=== PATIENT | female | born 1940 | race Caucasian/White ===

== ENCOUNTER 2016-07-28 04:33 | Emergency (ER) | payer OTHER, BC ==
[2016-07-28] MEDS ORDERED: NORMAL SALINE 10 ML SYRINGE FLUSH IVP PRN (04:55)
[2016-07-28 04:58] VITALS: RESP 20; TEMP 97.6
[2016-07-28 05:25] LABS: BASOPHILS # (AUTO) 0.08 10*3/UL; BASOPHILS % (AUTO) 0.7 % (0-1); HEMATOCRIT 41.7 % (37.0-47.0); HEMOGLOBIN 13.7 g/dL (12.0-16.0); IMM GRAN % (AUTO) 0.3 % (0-5); IMM GRAN# (AUTO) 0.03 10*3/UL; LYMPHOCYTES # (AUTO) 0.81 10*3/uL; MEAN CORPUSCULAR HEMOGLOBIN 28.3 PG (27-31); MEAN CORPUSCULAR HGB CONC 32.9 g/dL (33-37); MONOCYTES # (AUTO) 0.68 10*3/UL (0.3-0.8); MONOCYTES % (AUTO) 5.9 % (5-15); NEUTROPHILS # (AUTO) 9.54 10*3/UL; NEUTROPHILS % (AUTO) 83.1 % (50-80); RDW COEFFICIENT OF VARIATION 14.3 % (11.5-14.5); RED BLOOD COUNT 4.84 10^6/uL (4.20-5.40); WHITE BLOOD COUNT 11.49 10^3/uL (4.8-10.8)
[2016-07-28 05:27] LABS: PLATELET MORPHOLOGY COMMENT NORMAL MORPHOLOGY (NORM)
[2016-07-28 05:37] LABS: BILIRUBIN,TOTAL 0.9 mg/dL (0.3-1.2); BUN/CREATININE RATIO 13.33 (6-20); C-REACTIVE PROTEIN 1.4 mg/dL (0.0-0.9); CALCIUM 9.1 mg/dL (8.7-10.7); CREATININE 0.9 mg/dL (0.50-1.20); LACTATE 1.5 MMOL/L (0.70-2.10); POTASSIUM 4.2 meq/L (3.8-5.2)
[2016-07-28 05:43] LABS: BILIRUBIN,URINE NEGATIVE (NEG); CLARITY,URINE CLEAR (CLEAR); GLUCOSE, URINE (UA) NEGATIVE (NEG); LEUKOCYTE ESTERASE ,URINE TRACE (NEG); NITRATE,URINE NEGATIVE (NEG); OCCULT BLOOD,URINE NEGATIVE (NEG); PH,URINE 5.5 (5.0-8.5); PROTEIN,URINE NEGATIVE (NEG); UROBILINOGEN,URINE 0.2 EU/dL (0.2)
[2016-07-28 05:44] LABS: URINE SAMPLE TYPE CLEAN CATCH URINE
[2016-07-28 05:45] LABS: SQUAMOUS EPITHELIAL CELL,UR FEW
[2016-07-28] MEDS ORDERED: CLINDAMYCIN 150 MG CAPSULE PO ONE (06:14)
--- NOTE | 2016-07-28 06:34 | PDOC ---
General Adult HPI - General Chief Complaint: General Medical Stated Complaint: Fever/Body Aches Date Seen by Provider: 07/28/16 Time Seen by Provider: 04:40 Source: POSITIVE: Patient, Spouse Exam Limitations: POSITIVE: No limitations Nurse's Notes Reviewed & Considered: Yes - History of Present Illness Initial Comment: The patient is a 76-year-old female who presents to the emergency department with fever. She states that she woke up early this morning and felt like she was running a fever. Her temperature at home was 101. She also had some diffuse muscle aches especially across her shoulders. She took some Advil at home and then subsequently decided to come here to the emergency room. She denies any associated sore throat, cough or congestion. She has not had any complaints of abdominal pain or urinary symptoms. She did have a surgery on her right leg done by a grab operator in [place] for neuropathy about 3 weeks ago. She denies any drainage from the wounds. She was due to have her mir removed today and was supposed to have a similar surgery on her left leg. Have you received a tetanus shot in the past 10 years?: Yes - Patient Home Medications Home Medications: Home Medications Levothyroxine Sodium [Synthroid] 1 tab PO DAILY #90 tab 11/04/15 Metoprolol Succinate [Toprol Xl] 1 tab PO DAILY #90 tab 11/04/15 Citalopram Hydrobromide [Citalopram Hbr] 20 mg PO DAILY #90 tab 03/03/16 Alendronate Sodium [Fosamax] 70 mg PO WEEKLY #12 tab 04/20/16 Clindamycin HCl [Cleocin HCl] 300 mg PO TID #21 capsule 07/28/16 - Patient Allergies Allergies/Adverse Reactions: Allergies Allergy/AdvReac Type Severity Reaction Status Date / Time tolterodine tartrate AdvReac Intermediate diarrhea Verified 07/28/16 04:39 [From Detrol] Past Medical History - heen HEENT History: Denies History Cardiovascular History: Hypertension Respiratory History: Denies History Gastrointestinal History: Denies History Genitourinary History: Denies History Endocrine History: Hypothyroidism Musculoskeletal History: Carpal Tunnel, Other (please comment) Prosthesis or Implant: No Additional Musculoskeletal History: neuropathy bilateral legs Neurological History: Denies History Blood Disorders: Denies History Psychiatric History: Depression Female Reproductive History: Denies History Obstetrical History: Denies History Cancer History: Denies History In Past Year Been Physically Harmed or Verbally Threatened: No History of MDRO: No Tobacco Use: Never Smoker Alcohol Use: None Substance Use Type: None Previous Surgical History: Yes Type / Date of Surgery: lap band placement, carpal tunnel right hand, "neuropathy" surgery right leg, appendectomy, tubal ligation, tonsilectomy Anesthesia Reactions: No Significant Family History: No pertinent family hx Past Medical History Reviewed: Reviewed - No Changes ROS - Limitations ROS Limitations: No Limitations Constitution: REPORTS: Chills, Fever. DENIES: Weakness Cardiovascular: REPORTS: Denies Cardiac Symptoms. DENIES: Chest Pain Respiratory: REPORTS: Denies Resp Symptoms. DENIES: Cough Non Productive, Cough Productive, Shortness Of Breath Neurological: REPORTS: Denies Neuro Symptoms. DENIES: Headache Gastrointestinal: REPORTS: Denies GI Symptoms. DENIES: Abdominal Pain Musculoskeletal: REPORTS: Muscle Aches Genitourinary: DENIES: Dysuria, Flank Pain, Difficulty Urinating Eyes: REPORTS: Denies Symptoms ENT: REPORTS: Denies Symptoms Skin: DENIES: Rash General Adult Exam - General Appearance General Appearance: POSITIVE: Alert, Cooperative, No Acute Distress - HEENT HEENT: POSITIVE: Head Inspection Nml, Eyes Inspection Nml, Ears Inspection Nml, Pharynx Inspect. Nml - Neck Neck: POSITIVE: Normal Inspection. NEGATIVE: Lymphadenopathy - Respiratory Respiratory: POSITIVE: No Respiratory Distress, Breath Sounds Normal - Cardiovascular Cardiovascular: POSITIVE: Regular Rate & Rhythm, No Murmur Peripheral Pulses: Dorsalis-pedis (R): 2+, Dorsalis-pedis (L): 2+ - Abdomen Abdomen: Soft: (All Quadrants), Denies Tenderness: (All Quadrants), No Palpabale Mass: (All Quadrants), No Distention: (All Quadrants) - Back Back: POSITIVE: Normal Inspection - Skin Skin: POSITIVE: Normal Color, No Rash - Extremities Additional Extremities Details: Examination of the right leg reveals 2 incisions one just below the knee and one just above the ankle on her right leg. Mir are still in place. There is some surrounding erythema and induration, no obvious abscess or drainage from these wounds - Neurological / Psychological Neurological: POSITIVE: Other (No focal neurologic deficits) General Adult Progress - Results Reviewed by me Lab Results Reviewed: Yes Lab Results:: Laboratory Results 07/28/16 07/28/16 Range/Units 05:07 05:35 WBC 11.49 H (4.8-10.8) 10^3/uL RBC 4.84 (4.20-5.40) 10^6/uL Hgb 13.7 (12.0-16.0) g/dL Hct 41.7 (37.0-47.0) % MCV 86.2 (81-99) FL MCH 28.3 (27-31) PG MCHC 32.9 L (33-37) g/dL RDW Std Deviation 44.2 (39-50) fL RDW Coeff of Alejandra 14.3 (11.5-14.5) % Plt Count 312 (140-350) 10*3/uL MPV 10.0 (7.4-12.2) FL Immature Gran % (Auto) 0.3 (0-5) % Neut % (Auto) 83.1 H (50-80) % Lymph % (Auto) 7.0 L (10-50) % Cherry % (Auto) 5.9 (5-15) % Eos % (Auto) 3.0 (0-8) % Baso % (Auto) 0.7 (0-1) % Immature Gran # (Auto) 0.03 10*3/UL Neut # (Auto) 9.54 10*3/UL Lymph # (Auto) 0.81 10*3/uL Cherry # (Auto) 0.68 (0.3-0.8) 10*3/UL Eos # (Auto) 0.35 10*3/UL Baso # (Auto) 0.08 10*3/UL WBC Morphology Comment Normal morphology (NORM) Plt Morphology Comment Normal morphology (NORM) RBC Morph Comment Normal morphology (NORM) Sodium 135 (135-145) meq/L Potassium 4.2 (3.8-5.2) meq/L Chloride 102 (98-112) meq/L Carbon Dioxide 21 L (23-33) meq/L Anion Gap 12 (5-20) BUN 12 (7-22) mg/dL Creatinine 0.9 (0.50-1.20) mg/dL Estimated GFR (>60 ml/min/1.73m(2)) BUN/Creatinine Ratio 13.33 (6-20) Glucose 111 H (78-110) mg/dL Calculated Osmolality 280.0 (267-292) mOsm/kg Lactic Acid 1.5 (0.70-2.10) MMOL/L Calcium 9.1 (8.7-10.7) mg/dL Total Bilirubin 0.9 (0.3-1.2) mg/dL AST 18 (8-39) IU/L ALT 25 (9-52) IU/L Alkaline Phosphatase 100 (38-126) IU/L C-Reactive Protein 1.4 H (0.0-0.9) mg/dL Total Protein 7.0 (6.1-8.0) g/dL Albumin 4.0 (3.5-4.8) g/dL Globulin 3.0 (2.50-4.10) g/dL Albumin/Globulin Ratio 1.30 (1.3-2.0) mg/g Ur Collection Type Clean catch urine Urine Color Yellow Urine Clarity Clear (CLEAR) Urine pH 5.5 (5.0-8.5) Ur Specific Armstrong 1.011 (1.005-1.030) Urine Protein Negative (NEG) mg/dl Urine Glucose (UA) Negative (NEG) mg/dL Urine Ketones Negative (NEG) Urine Occult Blood Negative (NEG) Urine Nitrate Negative (NEG) Urine Bilirubin Negative (NEG) Urine Urobilinogen 0.2 (0.2) EU/dL Ur Leukocyte Esterase Trace (NEG) Urine RBC None (NONE) /hpf Urine WBC None (NONE) Ur Squamous Epith Cells Few (NONE) Ur Renal Epithelial Cell None (NONE) Urine Crystals None Urine Bacteria None (NONE) Urine Casts None (NONE) Urine Mucus None (NONE) Urine Trichomonas None (NONE) Urine Yeast None (NONE) Ur Culture Indicated? Culture not set - Patient's Progress MDM / ED Course: The patient was afebrile here in the emergency room and other vital signs were stable. Her blood work does reveal a mildly elevated white blood cell count and mildly elevated CRP. Urinalysis is normal. Her influenza screen was negative. There is no obvious clear source of fever. She does have some mild induration and erythema around both of the wounds on her right leg. This is thought to most likely be related to the staple still being in place however it' s possible that she may have some early wound infection. Because of this she was started on clindamycin 300 mg 3 times a day for 7 days. She is advised to continue Tylenol and ibuprofen as needed for fever. Blood cultures are pending although the patient does not appear to be septic. She is advised follow-up with her primary care clinic and [facility] in 1-2 days. She will contact her surgeon in [place] to reschedule. She will return to the emergency room if any worsening or change in symptoms. - Consult Counseled: POSITIVE: Patient, Family, RE: Lab Results, RE: DX, RE: Need for F/U Patient Care Time - Estimated PCT Patient Care Time (In Minutes): 25 Vital Signs - Recent Vital Signs Vital Signs: Vital Signs (Last 8 hours) Temp Pulse Resp BP Pulse Ox 07/28/16 04:35 97.6 F 86 20 135/77 93 - VS Reviewed Vital Signs Reviewed: Yes Discharge Clinical Impression: Fever, Cellulitis Condition: Stable Prescriptions / Orders: Clindamycin HCl [Cleocin HCl] 300 mg PO TID #21 capsule Patient Instructions Given at Discharge: Cellulitis (ED), Fever in Adults (ED) Additional Instructions: It is not exactly clear what is causing her fever. The urine did not show any sign of infection. Your blood work did show a mildly elevated white blood cell count. Blood cultures are pending. It is possible that there could be some degree of skin infection related to your recent surgery. The mir have been removed. You have been given a prescription for clindamycin 300 mg 3 times a day for 7 days which is an antibiotic. Continue Tylenol or ibuprofen as needed for fever. Return to the emergency room if any worsening or change in symptoms. Recommend a follow-up with the clinic and [facility] in 1-2 days. Follow Up With: ETIENNE FERRER [Primary Care Provider] -
== END 2016-07-28 06:24 | disposition home or self-care (01) ==
LOC: ER 04:33
DX: L03.115 Cellulitis of right lower limb (principal); R50.9 Fever, unspecified
CPT/HCPCS: 36415; 80053; 81001; 81003; 83605; 85025; 86140; 87040; 87804; 99282

== ENCOUNTER 2018-02-23 09:56 | Observation (INO) ==
[~2018-02-23 09:56] MED LIST: Clindamycin 900mg (Premix) 900 MG/50 ML BAG IV ONE; LIDOCAINE W/ SODIUM BICARB 0.5 ML SYR ONE; LIDOCAINE W/ SODIUM BICARB 0.5 ML SYR SUBD ONE; Lactated Ringers 1,000 ML PRIMARY IV ONE; Nasal Sanitizer POPSWAB ampule 3 AMP (Nozin) PREOP DOSE ENOS SCH
[2018-02-23] MEDS: Lactated Ringers 1,000 ML PRIMARY IV SCH (10:20)
[2018-02-23] MEDS ORDERED: TRANEXAMIC ACID 1,000 MG / 10 ML VIAL ONE (10:45)
[2018-02-23] MEDS ORDERED: PROPOFOL 10 MG/1 ML (200 MG/20 ML) VIAL IV ONE (11:03)
[2018-02-23] MEDS ORDERED: fentaNYL Inj 100 MCG/2 ML VIAL ONE (11:03)
[2018-02-23] MEDS ORDERED: KETAMINE 100 MG/1 ML - 5 ML ONE (11:03)
[2018-02-23] MEDS ORDERED: MIDAZOLAM 5 MG/1 ML ONE (11:03)
[2018-02-23] MEDS ORDERED: LIDOCAINE MPF 2% - 5 ML (20 MG/1 ML) ONE (11:07)
[2018-02-23] MEDS ORDERED: Ropivacaine 0.2% VIAL 20 ML ONE ×2 (11:08→11:14)
[2018-02-23] MEDS ORDERED: EPINEPHrine Inj (1:1,000) 30mg/30ml vial ONE (11:08)
[2018-02-23] MEDS ORDERED: BUPivacaine Inj 0.25% PF - 10ml vial ONE ×2 (11:08→14:00)
[2018-02-23] MEDS ORDERED: DEXAMETHASONE PF 10 MG/1 ML VIAL ONE (11:12)
[2018-02-23] MEDS ORDERED: BUPIVACAINE 0.5% W/EPI MPF -30 ML VIAL IV ONE (11:13)
[2018-02-23] MEDS ORDERED: PHENYLEPHRINE 10,000 MCG/1 ML VIAL ONE (12:11)
[2018-02-23] MEDS ORDERED: Lactated Ringers 1,000 ML PRIMARY IV ONE (12:35)
[2018-02-23] MEDS ORDERED: ESMOLOL HCL 100 MG/10 ML VIAL ONE (13:14)
[2018-02-23] MEDS ORDERED: BETAMET ACET/BETAMET NA PH 6 MG/1 ML - 5 ML ONE (13:58)
--- NOTE | 2018-02-23 14:26 | CRNA.PROGR ---
Anesthesia Time - Procedure/Recovery Time Start Date: 02/23/18 End Date: 02/23/18 Anesthesia : Time In: 11:52 Anesthesia : Time Out: 14:17 Anesthesia : Total Time: 145 - Block Time Start Date: 02/23/18 End Date: 02/23/18 PreOp Block : Time In: 11:31 PreOp Block : Time Out: 11:45 PreOp Block : Total Time: 14 - Total Anesthesia Time Total Anesthesia Time (minutes): 159 - Other Weight: 76.204 kg Height: 5 ft 2 in Body Mass Index (BMI): 30.7 Physical Status: P2 (Age greater than 70) Anesthesia Type: General Anesthesia : LMA
--- NOTE | 2018-02-23 14:29 | CRNA.PROCE ---
Nerve Block Documentation - - Safety Measures: Time Out Taken, Site Verified - - Type of Nerve Block Used: Right Interscalene Block (Analgesia block for post shoulder arthroscopy.) Position for Nerve Block: Prone Moniters Used During Block: EKG, SPO2, NIBP Oxygen Supplemented: Yes Sedation Used - Enter Amount in Comment Field [ANES.SEDAT]: Midazolam (mg): Yes (2.5 mg), Fentanyl (mcg): Yes (25 mcg) Skin Prep Used: ChloroPrep (Twice) Draped: No Technique: Nerve Stimulator Nerve Block Needle Used: 40 mm ProBlk II Local Anesthetic - Enter Amt in Comment Field [ANES.LOCNB]: 0.5 % Bupivicaine with Epinephrine 1:200,000 (mL): Yes (15 ml in 1.5 ml increments), Other Anesthetic: Yes (Ropivicaine 0.2% 15 ml in 1.5 ml increments) Additives to Nerve Blocks: Dexamethasone (mg): Yes (10 as block additive) Anesthesia Time - Block Time PreOp Block : Time In: 11:31 PreOp Block : Time Out: 11:45 - Other Weight: 76.204 kg Height: 5 ft 2 in Body Mass Index (BMI): 30.7
--- NOTE | 2018-02-23 14:32 | CRNA.PROGR ---
Post Anesthesia Phase II - Post Anesthesia Phase II Patient Stable and Discharged To: Med/Surg Care Assumed By Surgeon: Darvin Cesar MD Temperature: 97 F Pulse Rate: 86 Respiratory Rate: 16 Blood Pressure: 147/86 Pulse Ox: 93 Total Nidhi Score at Discharge: 8 Post Anesthesia Discharge Criteria Met: No Additional Details: Admitted to floor for failure to keep room air SPO2 greater than 90 %. Diaphramatic excursion reduced d/t ISB. Discharged home this am after night in hospital for block to resolve.
[2018-02-23] MEDS ORDERED: DOCUSATE 100 MG CAPSULE PO PRN (15:08)
[2018-02-23] MEDS ORDERED: Fleet Enema 133ml RECTAL PRN (15:08)
[2018-02-23] MEDS ORDERED: MAGNESIUM 400 MG/5 ML - 30 ML (MILK OF MAGNESIA) PO PRN (15:08)
[2018-02-23] MEDS ORDERED: MAGNESIUM CITRATE 296 ML SOLUTION PO PRN (15:08)
[2018-02-23] MEDS ORDERED: BISACODYL 5 MG TABLET PO PRN ×2 (15:08→18:23)
[2018-02-23] MEDS ORDERED: ONDANSETRON 4 MG/2 ML VIAL ONE (16:32)
[2018-02-23] MEDS ORDERED: ONDANSETRON 4 MG/2 ML VIAL IVP ONE (16:50)
[2018-02-23] MEDS ORDERED: IBUPROFEN 400 MG TABLET PO PRN (18:23)
[2018-02-23] MEDS ORDERED: MAG HYDROX/AL HYDROX/SIMETH 30 ML SUSP PO PRN (18:23)
[2018-02-23] MEDS ORDERED: CALCIUM CARBONATE 500 MG (TUMS) CHEWABLE TABLET PO PRN (18:23)
[2018-02-23] MEDS ORDERED: Ondansetron ODT Tab 8 MG TAB PO PRN (18:23)
[2018-02-23] MEDS ORDERED: ACETAMINOPHEN 325 MG TABLET PO PRN (18:23)
[2018-02-23] MEDS ORDERED: Prochlorperazine Tab 10 MG TAB PO PRN (18:23)
[2018-02-23] MEDS ORDERED: ONDANSETRON 4 MG/2 ML VIAL IVP PRN (18:23)
[2018-02-23] MEDS ORDERED: BISACODYL 10 MG SUPPOSITORY RECTAL PRN (18:23)
[2018-02-23] MEDS ORDERED: diphenhydrAMINE 25 MG CAPSULE PO PRN (18:23)
[2018-02-23] MEDS ORDERED: GABAPENTIN 300 MG CAPSULE PO SCH (18:45)
--- NOTE | 2018-02-23 19:16 | CONSULT ---
Consult Note - Consult Reason for Consult: PreOp Consulation : Ortho Primary Care Provider: Rosa Cheek - History of Present Illness History of Present Illness: Is a very nice 77-year-old female she is status post right rotator cuff surgery was consult by Dr. Cesar patient's hypoxic most likely from her anesthesia block affecting her diaphragm. Past Medical History Medical History: Hypothyroidism, depression Tobacco Use: Never Smoker In the Past 12 Months, Have Used or Abuse Any of the Following Substance: None Review of Systems - Review of Systems All Systems: Reviewed & No Additional Complaints Except as Stated - Cardiovascular Cardiovascular: DENIES: Negative System Review, Chest Pain, Edema, Syncope, Palpitations, Orthopnea, Paroxysmal Nocturnal Dyspnea, Other, See HPI - Gastrointestinal Gastrointestinal / Abdominal: DENIES: Negative System Review, Nausea, Vomiting, Diarrhea, Constipation, Abdominal Pain, Bloody Stool, Poor Appetite, Heartburn, Regurgitation, Bloating, Lactose Intolerance, Melena, Bright Red Blood per Rectum, Other, See HPI - Genitourinary Genitourinary: DENIES: Negative System Review, Pain, Burning, Hematuria, Incontinence, Urgency, Hesitant Stream, Decreased Stream, Nocutria, Discharge, Sexual Dysfunction, Other, See HPI Medication / Allergies Home Medications: Home Medications 3 Medication Instructions Recorded Confirmed Type Levothyroxine Sodium [Synthroid] 1 tab PO DAILY #90 tab 11/04/16 02/23/18 Rx Citalopram Hydrobromide 20 mg PO DAILY #90 tab 12/06/16 02/23/18 Rx [Citalopram HBr] Gabapentin 300 mg PO DAILY 02/23/18 02/23/18 History Hydrocodone Bit/Acetaminophen 1 - 2 tab PO Q4H PRN #60 tab 02/23/18 Rx [Hydrocodon-Acetaminoph 7.5-325] Allergies/Adverse Reactions: Allergies 3 Allergy/AdvReac Type Severity Reaction Status Date / Time amoxicillin [From Augmentin] Allergy Severe VOMITING Verified 02/23/18 10:24 clavulanic acid Allergy Severe VOMITING Verified 02/23/18 10:24 [From Augmentin] prednisone AdvReac Intermediate VOMITING Verified 02/23/18 10:24 tolterodine tartrate AdvReac Intermediate diarrhea Verified 07/28/16 04:39 [From Detrol] Exam - Vitals Vital Signs: Vital Signs Temperature 97.8 F Pulse Rate 103 Respiratory Rate 15 Blood Pressure 143/78 Pulse Ox 94 Oxygen Flow Rate 3L NC Height 5 ft 2 in Weight 168 lb - General General Appearance: No Acute Distress, Cooperative - Head Head Exam: Normal Inspection, Normocephalic, Atraumatic - Eye Eye Exam: POSITIVE: Normal Appearance, PERRL, EOMI, No Scleral Icterus - Respiratory Respiratory Exam: POSITIVE: Clear to Auscultation - Bilaterally, Breathing Non Labored, Normal To Percussion, Normal to Percussion and Palpation - Cardiovascular Cardiovascular Exam: POSITIVE: RRR, No Murmur, No Clicks, No Gallops, No Rubs, PMI Non-Displaced - GI/Abdominal GI/Abdominal Exam: POSITIVE: Normal Bowel Sounds, Non Tender, Non Distended, Soft, No Masses, No Hepatomegaly, No Splenomegaly, No Organomegaly Assessment and Plan - Patient Problems (1) Hypoxia Current Visit: Yes Status: Acute Comment: Patient is actually doing a little better now she is moving good air on both sides right lung base are inflated we will observe her overnight on continuous pulse ox and potline monitor discussed with nursing family and Code(s): R09.02 - Hypoxemia (2) S/P rotator cuff surgery Current Visit: Yes Status: Acute Comment: Defer to Dr. Cesar for PT OT orders and follow-ups Code(s): Z98.890 - Other specified postprocedural states
[2018-02-23] MEDS: HYDROcodone-APAP 7.5 MG-325 MG TABLET PO PRN (19:31)
--- NOTE | 2018-02-23 20:58 | DI ---
AP CHEST X-RAY, 02/23/2018 6:45 PM : Clinical History: Hypoxia following rotator cuff surgery. Previous Exam: None at this facility. Soft tissue gas is present over the right clavicle. Heart size is normal. The right diaphragm is elev ated, probably secondary to phrenic nerve paralysis associated with the scalene block performed for s urgery. There is right lower lobe atelectasis. The descending aorta appears ectatic. Mediastinal stru ctures are normal. There are no pulmonary nodules. Reading: Elevated right diaphragm with right lower lobe atelectasis consistent with a right scalene block perf ormed for the right shoulder surgery.
[2018-02-24] MEDS: HYDROcodone-APAP 7.5 MG-325 MG TABLET PO PRN ×3 (00:26→07:31)
[2018-02-24] MEDS ORDERED: LEVOTHYROXINE 50 MCG TABLET PO SCH (05:30)
[2018-02-24] MEDS: Lactated Ringers 1,000 ML PRIMARY IV SCH (06:23)
[2018-02-24 08:55] VITALS: RESP 16
[2018-02-24] MEDS ORDERED: CITALOPRAM 20 MG TABLET PO SCH (09:00)
--- NOTE | 2018-02-24 10:09 | PDOC(PROG) ---
Interval History: Patient is doing much better today I had her ambulate and she is satting 91% after ambulation around the hallway she had her breakfast and no difficulty swallowing and no nausea no vomiting no chest pain Objective : Exam - Eye Eye Exam: Normal Appearance, PERRL, EOMI, No Scleral Icterus - Respiratory Respiratory Exam: Clear to Auscultation - Bilaterally, Breathing Non Labored, Normal To Percussion, Normal to Percussion and Palpation - Cardiovascular Cardiovascular Exam: RRR, No Murmur, No Clicks, No Gallops, No Rubs, PMI Non- Displaced - Extremities Extremities Exam: No Clubbing Present, No Edema Present, No Cyanosis Present - Neurological Neurological Exam: Alert, Oriented x 3, Reflexes Normal, Normal Gait, CN II-XII Intact, No Facial Droop, Moves All Extremities Equally Assessment and Plan - Patient Problems (1) Hypoxia Current Visit: Yes Status: Acute Comment: This is resolved most likely from anesthesia she is satting above 90% on ambulation no difficulty eating or swallowing she had breakfast we'll discharge home Code(s): R09.02 - Hypoxemia (2) S/P rotator cuff surgery Current Visit: Yes Status: Acute Comment: She will follow-up with Dr. Cesar as an outpatient instructions for her rotator cuff the PT and OT and defer to Dr. Cesar Code(s): Z98.890 - Other specified postprocedural states
--- NOTE | 2018-02-24 10:12 | DCSUMMARY ---
Hospitalization Summary Hospital Course: Final Discharge Diagnosis: Current Visit Problems Problem Status Onset Code Hypoxia Acute R09.02 S/P rotator cuff surgery Acute Z98.890 Diagnostic Data, Laboratory Data, and Procedures of Signifigance: History and Physical pertinent to Admission: Course of Hospitalization: This very nice 77-year-old female who comes in for outpatient rotator cuff surgery after her surgery she was somewhat a little hypoxic most likely secondary to anesthesia with her block and her diaphragm not working correctly today she is much better she is satting above 91% on ambulation without oxygen she is also not having any difficulty swallowing and had breakfast with no issues she will be discharged home in stable and improved condition from the from this the hypoxia in regards to her rotator cuff surgery she will follow-up with Dr. Cesar PT OT orders a were given to her by the orthopedic surgeon On the date of discharge, the patient was examined: Gen.: No acute distress, alert, nontoxic Heart: Regular rate and rhythm, no murmurs, clicks, gallops, or rubs Lungs: Clear to auscultation bilaterally, breathing is nonlabored Abdomen/GI: Normal tones on auscultation, soft, nontender, nondistended Musculoskeletal/extremities: No clubbing, cyanosis, or edema Vitals reviewed and are listed below Vital Signs (24 hrs) Temp Pulse Pulse Pulse Resp BP BP 02/24/18 08:55 97.4 F 74 16 132/65 02/24/18 07:00 88 74 16 02/24/18 04:50 02/24/18 04:05 97.9 F 85 20 148/63 02/24/18 03:00 69 02/24/18 00:24 98.7 F 80 16 147/70 02/23/18 23:00 77 02/23/18 19:36 98.4 F 97 21 135/71 02/23/18 19:32 97 02/23/18 19:04 98.4 F 88 97 18 135/71 02/23/18 18:45 02/23/18 18:30 02/23/18 18:15 02/23/18 18:00 02/23/18 17:45 02/23/18 17:30 101 H 02/23/18 17:15 110 H 16 02/23/18 17:00 111 H 20 136/74 02/23/18 16:45 129 H 20 152/70 02/23/18 16:30 129 H 17 138/118 02/23/18 16:15 112 H 12 164/86 02/23/18 16:00 103 H 15 143/78 02/23/18 15:15 104 H 17 146/123 02/23/18 15:00 106 H 29 H 148/83 02/23/18 14:45 97.8 F 108 H 12 147/81 02/23/18 14:40 109 H 16 143/80 02/23/18 14:32 97 F 86 16 147/86 02/23/18 14:30 106 H 10 L 146/109 02/23/18 14:16 97 F 110 H 14 129/85 02/23/18 14:13 97.1 F 109 H 16 149/99 02/23/18 12:25 108 H 11 L 150/82 02/23/18 10:20 97 F 86 16 147/86 Pulse Ox 02/24/18 08:55 91 02/24/18 07:00 02/24/18 04:50 91 02/24/18 04:05 91 02/24/18 03:00 02/24/18 00:24 92 02/23/18 23:00 02/23/18 19:36 93 02/23/18 19:32 02/23/18 19:04 93 02/23/18 18:45 92 02/23/18 18:30 93 02/23/18 18:15 87 02/23/18 18:00 90 02/23/18 17:45 89 02/23/18 17:30 92 02/23/18 17:15 94 02/23/18 17:00 89 02/23/18 16:45 86 02/23/18 16:30 90 02/23/18 16:15 94 02/23/18 16:00 94 02/23/18 15:15 93 02/23/18 15:00 93 02/23/18 14:45 93 02/23/18 14:40 92 02/23/18 14:32 93 02/23/18 14:30 94 02/23/18 14:16 90 02/23/18 14:13 93 02/23/18 12:25 93 02/23/18 10:20 93 Assessment and Plan: 1. As per discharge assessments above 2. Disposition: Home 3. Condition on discharge, stable and improved. 4. Diet: regular diet 5. Activities: resume normal activities 6. Follow-Up: Dr. Cesar as instructed 1. PCP 2. 7. Medications at the Time of Discharge: Home Medications 3 Medication Instructions Recorded Confirmed Type Levothyroxine Sodium [Synthroid] 1 tab PO DAILY #90 tab 11/04/16 02/23/18 Rx Citalopram Hydrobromide 20 mg PO DAILY #90 tab 12/06/16 02/23/18 Rx [Citalopram HBr] Gabapentin 300 mg PO DAILY 02/23/18 02/23/18 History Hydrocodone Bit/Acetaminophen 1 - 2 tab PO Q4H PRN #60 tab 02/23/18 Rx [Hydrocodon-Acetaminoph 7.5-325] 8. Time, care, counseling and coordination of care for this discharge is greater than 30 minutes. Exam - Vitals Vital Signs: Vital Signs Temperature 97.4 F Temperature Source Temporal Artery Scan Pulse Rate [Apical] 88 Pulse Rate [Pulse Oximeter] 74 Pulse Rate 69 Respiratory Rate 16 Blood Pressure [Left Arm] 132/65 Blood Pressure 136/74 Pulse Ox 91 Oxygen Flow Rate 1 Oxygen Delivery Method Nasal Cannula Height 5 ft 2 in Weight 175 lb 6.4 oz Patient Problems - Patient Problem List (1) Hypoxia Current Visit: Yes Status: Acute Code(s): R09.02 - Hypoxemia Category: Medical (2) S/P rotator cuff surgery Current Visit: Yes Status: Acute Code(s): Z98.890 - Other specified postprocedural states Category: Medical
--- NOTE | 2018-02-24 10:39 | PT.PROG ---
Progress Note Progress Note: Pt mobility is doing well per OT report and DC is pending so physical therapy eval not appropriate at this time.
--- NOTE | 2018-02-24 15:04 | OPS SHOULD ---
Referral Reason: Instruction in Activities of Daily Living/Shoulder Cryo Cuff O: The patient was instructed in activities of daily living including dressing and bathing, as well as shoulder do's and don'ts. The patient was issued a cryo cuff for the shoulder and instructed in its proper use and care. P: No further therapy is indicated at this time. The patient will begin outpatient physical therapy. MTDD
[2018-02-24 15:13] VITALS: BP 147/86; TEMP 97; O2SAT 93
--- NOTE | 2018-02-24 15:17 | OTI REPORT ---
Thank you for the referral of Magdalena Rodriguez. She was seen on 02/24/18 for an occupational therapy inpatient evaluation status post rotator cuff repair. SUBJECTIVE: The patient is a 77-year-old female who had a rotator cuff repair yesterday. She did become hypoxic due to the block so she was kept overnight for observation. This morning the patient reported she is feeling much better. Her pain levels are low, probably still due to the block; although she does have good elbow and wrist range of motion. PAST MEDICAL HISTORY: Past medical history can be found in the patient's medical record. OBJECTIVE FINDINGS: General observations: The patient was laying in bed upon the therapist's arrival with her abduction brace on. Bed mobility: The patient was able to complete bed mobility independently. Activities of daily living: She was able to complete toileting with 10% assist to pull up the right side of the brief. We were trying to fit the patient's brace, but it did seem like it was a little too small. Nursing did call down and we were able to get a bigger brace for the patient. The patient was able to complete upper extremity and lower extremity dressing with stand by assist only and received education on upper extremity dressing following rotator cuff repair. The patient was adjusted into her new brace and she and her were educated on how to don and doff the brace safely. Ambulation: The patient was able to ambulate around the nurse's station x150 feet with stand by assist only. ASSESSMENT: At this time the patient has met all shoulder goals to go home and she will be discharged today from the hospital. TREATMENT PLAN: Patient will be discharged to home. INITIAL TREATMENT: Treatment today consisted of the initial evaluation activities only. BRIJESH
== END 2018-02-24 11:03 | disposition home or self-care (01) ==
LOC: MED/SURG 09:56 → OR 09:56
PROVIDERS: ADMIT Orthopaedic Surgery; ATTEND Orthopaedic Surgery